=== PATIENT | male | born 1995 | race Hispanic/Latino ===

== ENCOUNTER 2018-06-29 18:46 | Inpatient (IN) | payer SELFPAY ==
[~2018-06-29] VITALS: Ht 172.7 cm; Wt 76.3 kg
[2018-06-29] MEDS ORDERED: DEXAMETHASONE SOD PHOS 10 MG/1 ML VIAL IM ONE (19:15)
[2018-06-29] MEDS ORDERED: PENICILLIN G BENZATHINE LA 1.2 MU TBX IM ONE (19:30)
[2018-06-29] MEDS ORDERED: ACETAMINOPHEN/CODEINE 300MG - 30MG TAB PO ONE (19:30)
[2018-06-29] MEDS ORDERED: SODIUM CHLORIDE 0.9% 1000ML 1,000 ML IV SCH ×2 (21:00→22:13)
--- NOTE | 2018-06-29 21:03 | Diagnostic Imaging Report ---
NECK SOFT TISSUE - 2 views HISTORY: Pain. swollen throat COMPARISON: None available. FINDINGS: Bones: No acute displaced fracture. Osseous alignment is within normal limits. Joints: The joint spaces are well-maintained. Soft tissues: Normal palatine and adenoid tonsils. IMPRESSION: 1. No acute radiographic abnormality. 2. Normal palatine and adenoid tonsils. Signed by: Dr. Иван Lopez M.D. on 06/29/2018 9:00 PM
[2018-06-29 21:39] LABS: BASOPHILS % 0.3 % (0.0-1.0); EOSINOPHILS # (AUTO) 0.3 (0.0-0.4); EOSINOPHILS % 2.1 % (0.0-6.0); HEMATOCRIT 26.6 % (38.2-49.6); HEMOGLOBIN 7.5 g/dL (14.0-18.0); LYMPHOCYTES # (AUTO) 2.3 (1.0-3.2); LYMPHOCYTES % 15.3 % (18.0-39.1); MEAN CORPUSCULAR HEMOGLOBIN 18.1 pg (28-32); MEAN CORPUSCULAR HGB CONC 28.2 g/dL (31-35); MEAN CORPUSCULAR VOLUME 64.3 fL (81-99); MONOCYTES # (AUTO) 1.1 (0.2-0.8); MONOCYTES % 7.1 % (4.4-11.3); NEUTROPHILS # (AUTO) 11.3 (2.1-6.9); NEUTROPHILS % 74.7 % (38.7-80.0); PLATELET COUNT 577 x10e3/uL (140-360); RED BLOOD COUNT 4.14 x10e6/uL (4.3-5.7); RED CELL DISTRIBUTION WIDTH 16.3 % (11.7-14.4)
[2018-06-29 21:58] LABS: ALANINE AMINOTRANSFERASE 12 IU/L (0-55); ALBUMIN 3.2 g/dL (3.5-5.0); ALBUMIN/GLOBULIN RATIO 0.7 (0.8-2.0); ALKALINE PHOSPHATASE 98 IU/L (40-150); ANION GAP 14.6 mmol/L (8-16); BLOOD UREA NITROGEN 8 mg/dL (7-26); BUN/CREATININE RATIO 9 (6-25); CALCIUM 9.2 mg/dL (8.4-10.2); CARBON DIOXIDE 24 mmol/L (22-29); CHLORIDE 103 mmol/L (98-107); CREATININE, SERUM 0.93 mg/dL (0.72-1.25); EST GLOMERULAR FILTRATION RATE > 60 ML/MIN (60-); GLUCOSE 102 mg/dL (74-118); POTASSIUM 3.6 mmol/L (3.5-5.1); SODIUM 138 mmol/L (136-145)
[2018-06-29] MEDS ORDERED: SODIUM CHLORIDE 0.9% 250ML 250 ML IV ONE (22:45)
[2018-06-29] MEDS ORDERED: SODIUM CHLORIDE 0.9% 50ML 50 ML ONE (22:45)
[2018-06-29] MEDS ORDERED: IOPAMIDOL 370 MG/ML 200 ML INFUS..BTL INJ ONE (22:45)
--- OUTSIDE RECORDS SUMMARY | 2018-06-29 23:04 | XMS REPORT ---
Author Author [facility] Address Unknown Phone Unavailable Care Team Providers Care Sales Audit Clerk Name Role Phone Bishnu DUNHAM Unavailable Unavailable Problems This patient has no known problems. Allergies, Adverse Reactions, Alerts This patient has no known allergies or adverse reactions. Medications This patient has no known medications. Results Test Description Test Time Test Comments Text Results Atomic Results Result Comments NECK SOFT TISSUE 2018-06-29 20:58:00 [place] [id number] Patient Name: JEMAL RIVAS MR #: [id number] : 1995 Age/Sex: 22/M Req #: [id number] Adm Physician: Ordered by: BETTY ANAYA MD Report #: [id number] Location: ER Room/Bed: Procedure: [id number] DX/NECK SOFT TISSUE Exam Date: 06/29/18 Exam Time: 2039 REPORT STATUS: Signed NECK SOFT TISSUE - 2 views HISTORY: Pain. swollen throat COMPARISON: None available. FINDINGS: Bones: No acute displaced fracture. Osseous alignment is within normal limits. Joints: The joint spaces are well-maintained. Soft tissues: Normal palatine and adenoid tonsils. IMPRESSION: 1. No acute radiographic abnormality. 2. Normal palatine and adenoid tonsils. Signed by: Dr. Umang Lopez M.D. on 06/29/2018 9:00 PM Dictated By: UMANG LOPEZ MD 99 Transcribed By: ADILENE on 06/29/182099 COPY TO: BETTY ANAYA MD
--- NOTE | 2018-06-29 23:21 | Diagnostic Imaging Report ---
EXAM: CT Abdomen and Pelvis WITH contrast INDICATION: Pain. Anemia. COMPARISON: None. TECHNIQUE: Abdomen and pelvis were scanned utilizing a multidetector helical scanner from the lung base to the pubic symphysis after administration of IV contrast. Coronal and sagittal reformations were obtained. Routine protocol was performed. Scan was performed when during portal venous phase. IV CONTRAST: 100 cc Isovue-370 ORAL CONTRAST: Water RADIATION DOSE: Total DLP: 676.88 mGy*cm Estimated effective dose: (DLP x 0.015 x size factor) mSv COMPLICATIONS: None FINDINGS: LINES and TUBES: None. LOWER THORAX: Unremarkable HEPATOBILIARY: No focal hepatic lesions. No biliary ductal dilation. GALLBLADDER: No radio-opaque stones or sludge. No wall thickening. SPLEEN: No splenomegaly. PANCREAS: No focal masses or ductal dilatation. ADRENALS: No adrenal nodules KIDNEYS/URETERS: Kidneys enhance symmetrically. No hydronephrosis. No cystic or solid mass lesions. No stones. GI TRACT: Mild diffuse nodular wall thickening of the colon, particularly of the transverse colon, associated with mild diffuse mesenteric lymphadenopathy. There is also engorgement of the mesenteric vasculature diffusely. Appendix is normal. PELVIC ORGANS/BLADDER: Unremarkable. LYMPH NODES: No lymphadenopathy. VESSELS: Unremarkable. PERITONEUM / RETROPERITONEUM: No free air or fluid. BONES: Unremarkable. Lumbarization of S1 SOFT TISSUES: Unremarkable. IMPRESSION: 1. Findings consistent with diffuse colitis which may be infectious, inflammatory or neoplastic etiology. Mild diffuse mesenteric lymphadenopathy is most likely reactive. Signed by: Dr. Hamzah Garcia M.D. on 06/29/2018 11:18 PM
--- NOTE | 2018-06-29 23:22 | Diagnostic Imaging Report ---
History: Throat pain and swelling. Comparison studies: X-ray of the soft tissue neck from 06/29/2018. Technique: Axial, coronal and sagittal images from the skull base to the thoracic inlet. Coronal and sagittal images reconstructed from the axial data. Dose modulation, iterative reconstruction, and/or weight based adjustment of the mA/kV was utilized to reduce the radiation dose to as low as reasonably achievable. Intravenous contrast: 100 cc of Isovue 370. Findings: Soft tissues: Nonspecific mild nasopharyngeal soft tissue prominence may represent adenoid hyperplasia. The airway is patent. Masses: None. Lymph nodes: No radiographically significant adenopathy. Vessels: Arteries and veins are patent. Glands (thyroid, parotid and submandibular): Normal in size and symmetric. No masses. Orbits: No abnormalities. Paranasal sinuses: Moderate mucosal thickening in left maxillary sinus. Temporal bones: No abnormalities. Skull base and facial bones: Intact. Cervical spine: No significant abnormality. IMPRESSION: 1. Nonspecific mild nasopharyngeal soft tissue prominence possibly represent adenoid hyperplasia. 2. Moderate mucosal inflammatory changes in left maxillary sinus. Signed by: Dr. aVnessa Aly M.D. on 06/29/2018 11:19 PM
--- NOTE | 2018-06-29 23:34 | NUR ---
Walking rounds completed with Madi maintenance supervisor 2nd shift nurse.
[2018-06-30] VITALS (7 sets, daily range): BP systolic 110–118; BP diastolic 71–76
[2018-06-30] MEDS ORDERED: CIPROFLOXACIN 400 MG/D5W 200ML 200 ML IV SCH (00:15)
[2018-06-30 02:04] LABS: HYPOCHROMASIA SLIGHT; PLATELET ESTIMATE ADEQUATE; PLATELET MORPHOLOGY COMMENT NORMAL; RBC MORPHOLOGY COMMENT NORMAL
[2018-06-30] MEDS: METRONIDAZOLE 500MG/NS 100ML 100 ML IV SCH ×3 (02:11→16:00)
[2018-06-30] MEDS ORDERED: SODIUM CHLORIDE 0.9% 250ML 250 ML ONE ×2 (03:26→04:09)
[2018-06-30] MEDS: CIPROFLOXACIN 400 MG/D5W 200ML 200 ML IV SCH ×2 (03:30→15:00)
--- NOTE | 2018-06-30 03:50 | NUR ---
Patient received via stretcher from ER accompanied by family members. Admission history obtained. Initial physical assessment conducted. Patient is AAO x 3. No complaints of pain. No signs of respiratory distress. Patient oriented to room, call light and plan of care. Fall interventions implemented. Patient instructed to call for assistance when needed. Call light within reach.
--- NOTE | 2018-06-30 04:25 | NUR ---
Ist unit of PRBC initiated. No adverse reaction noted.
[2018-06-30] MEDS ORDERED: INFLUENZA VIRUS VAC SPLIT INJ 0.5 ML SYR IM SCH ×2 (05:38→05:45)
--- NOTE | 2018-06-30 06:11 | NUR ---
1st unit of blood completed. No adverse reaction noted. Patient tolerated well.
--- NOTE | 2018-06-30 06:30 | NUR ---
2nd unit of blood transfusion initiated. Will continue to monitor.
--- NOTE | 2018-06-30 07:19 | NUR ---
Pt asleep easily aroused, resp even and unlabored at this time, no distress noted no c/o pain when asked, pt able to make needs known, call light in reach.
--- NOTE | 2018-06-30 07:33 | NUR ---
Dr. Dickson Mccall made aware of "Consult". Reason: Lower GI bleed".
[2018-06-30 11:30] LABS: BASOPHILS % 0.1 % (0.0-1.0); HEMOGLOBIN 8.5 g/dL (14.0-18.0); LYMPHOCYTES # (AUTO) 2.2 (1.0-3.2); LYMPHOCYTES % 12.7 % (18.0-39.1); MEAN CORPUSCULAR HGB CONC 29.3 g/dL (31-35); MEAN CORPUSCULAR VOLUME 68.4 fL (81-99); MONOCYTES # (AUTO) 1.3 (0.2-0.8); MONOCYTES % 7.9 % (4.4-11.3); NEUTROPHILS # (AUTO) 13.3 (2.1-6.9); NEUTROPHILS % 78.6 % (38.7-80.0); PLATELET COUNT 469 x10e3/uL (140-360); RED BLOOD COUNT 4.24 x10e6/uL (4.3-5.7); RED CELL DISTRIBUTION WIDTH 20.4 % (11.7-14.4)
[2018-06-30] MEDS: DONNATAL/LIDOCAINE/MAALOX 30 ML SUSP PO PRN ×3 (12:40→22:23)
--- NOTE | 2018-06-30 14:28 | NUR ---
Nutrition Intervention Note RD Recommendation(s) for Physician: change diet to Regular Plan of Care: RD following, monitoring for tolerance and adequacy Nutrition reason for involvement: Nutrition Risk Trigger - MST RD Assessment Initial encounter with patient. Pt with difficulty swallowing due to a swollen tongue and sore throat. Offered a texture modification, but pt refused. Offered Ensure Enlive for Pt to try and pt was agreeable. Pt denies nausea, vomiting or diarrhea. Pt states that he has lost about 20 lbs during the past year. Principal Problems/Diagnoses:lower GIB, anemia PMH:None IVF: none GI: No N,V,D Skin:Intact Labs: (06/30/2018) lab results reviewed Meds: (06/30/2018) MAR reviewed Malnutrition Evaluation (07/04/2018) The patient meets criteria for MILD protein-calorie malnutrition. Energy intake: <75% of estimated energy requirements for >3 months Weight loss: >10% in 1 year (Chronic) Fat loss: Mild, Moderate, Severe, unable to evaluate Muscle loss:Mild, Moderate, Severe, unable to evaluate Diet Education Needs Assessment: Diet education not indicated. Ht:68 Wt:167.44lbs BMI:25.5kg/m2 IBW:154lbs Estimated Nutritional Needs: 1897 - 2277 kcals at 25-30 kcals/kg/bw 76g at 1g/kg/bw Nutrition Prescription (Diet Order):Cardiac diet Food Allergies: No known food allergies Diet Adequacy: Not meeting calorie needs, Not meeting protein needs Tolerance: Tolerating PO Nutrition Care Level: Moderate Nutrition Diagnosis: Swallowing difficulty related to swollen tongue as evidenced by difficulty chewing or swallowing regular consistency foods Goal:Patient will meet 75-100% of estimated needs by follow up Progress: Progressing Interventions: General healthful diet, Commercial beverage Monitoring/Evaluation: Total energy intake, Total protein intake, Liquid supplement, Weight change Carl Sheikh RD, LD, CNSC
--- NOTE | 2018-06-30 16:46 | History and Physical ---
REASON FOR ADMISSION: The patient is a 22-year-old gentleman, who comes in with abdominal pain, rectal bleeding, and also with ulcerations in the mouth and sore throat. HISTORY OF PRESENT ILLNESS: Mr. Luis Enrique Blevins with a history of one year of abdominal pain and rectal bleeding, was in his usual state of health until about two days prior to admission, the patient started to have sore throat and ulcerations in the mouth. The patient's pain was described as 10/10. The patient came in, was found to have symptomatic anemia, and the patient was admitted for acute GI bleeding. The patient has also significant history of weight loss about 50 pounds in the last one year. REVIEW OF SYSTEMS: Negative for chest pain. No shortness of breath. No nausea, vomiting, or diarrhea. Positive for rectal bleeding. The patient has also no diplopia. No blurry vision. Positive for tiredness and fatigue. SOCIAL HISTORY: No EtOH. No IV drug abuse. Recently, he had a child, 1-year-old son. The patient has been under a lot of stress after that. MEDICATIONS: None. ALLERGIES: NO DRUG ALLERGIES NOTED. SOCIAL HISTORY: Never smoker. No EtOH. No IV drug abuse. FAMILY HISTORY: Noncontributory. PHYSICAL EXAMINATION: VITAL SIGNS: Temperature is 97.1, pulse of 72, respirations 16, blood pressure is 118/76, and pulse oximeter of 99%. HEENT: Normocephalic, atraumatic. The patient does have mucosal ulceration in the cheek and the buccal mucosa and also in the tongue, in the posterior tonsillar fossa and also in the oropharynx. CVS: S1, S2, normal. Regular rate and rhythm. ABDOMEN: Nontender, nondistended. EXTREMITIES: No clubbing, no cyanosis, no edema. LABORATORY DATA: The patient's laboratory values show white count of 15,000 with hemoglobin of 7.5 and hematocrit was 26.6. Chemistry, sodium of 138, potassium 3.6, BUN of 8, creatinine 0.93. Serology, group A strep was negative. Microbiology, throat culture is pending. ASSESSMENT: 1. Anemia, symptomatic, status post blood transfusion. 2. Abdominal pain with [id number] gastrointestinal bleed. The patient will need endoscopy and colonoscopy. 3. Significant symptomatic weight loss. We will continue to monitor the patient. Also, endoscopies are warranted at this time. Further recommendations and clinical course, GI consult with Dr. Bernabe that has been done. We will await his consult for further recommendation and clinical course. In the meanwhile, the patient is on antibiotic, has been put on Flagyl and ciprofloxacin, which we will continue. MD ALONDRA Tomlin/MODL /[id number]
--- NOTE | 2018-06-30 19:21 | NUR ---
REPORT GIVEN TO ONCOMING NURSE, FOR CONTINUED CARE
--- NOTE | 2018-06-30 19:28 | NUR ---
Patient received sitting up in bed. Family members at bedside. AAO x 4. Patient had no complaints of pain. Respirations even and unlabored. Fall prevention implemented. Call light within reach.
[2018-07-01] VITALS (7 sets, daily range): BP systolic 98–113; BP diastolic 61–70
--- NOTE | 2018-07-01 01:39 | NUR ---
Dr. Dickson Mccall here to see patient. New orders received.
--- NOTE | 2018-07-01 02:15 | NUR ---
Patient informed of diagnostic procedure---EGD/Colonoscopy and Go-Lytely bowel prep that commences at 0800. Patient also informed of change of diet from regular to clear liquid diet. Patient verbalized understanding. Patient voluntarily signed "Disclosure and Consent " form.
[2018-07-01] MEDS: CIPROFLOXACIN 400 MG/D5W 200ML 200 ML IV SCH ×2 (03:00→14:59)
[2018-07-01 06:53] LABS: INR 1.13; PROTHROMBIN TIME 15.1 seconds (11.9-14.5)
[2018-07-01 07:03] LABS: % IRON SATURATION 4 % (15-50); ALANINE AMINOTRANSFERASE 11 IU/L (0-55); ALBUMIN 2.6 g/dL (3.5-5.0); ALBUMIN/GLOBULIN RATIO 0.6 (0.8-2.0); ALKALINE PHOSPHATASE 83 IU/L (40-150); ANION GAP 11.1 mmol/L (8-16); BLOOD UREA NITROGEN 10 mg/dL (7-26); BUN/CREATININE RATIO 11 (6-25); CALCIUM 8.3 mg/dL (8.4-10.2); CARBON DIOXIDE 27 mmol/L (22-29); CHLORIDE 106 mmol/L (98-107); CREATININE, SERUM 0.87 mg/dL (0.72-1.25); EST GLOMERULAR FILTRATION RATE > 60 ML/MIN (60-); GLUCOSE 108 mg/dL (74-118); IRON 11 ug/dL (65-175); POTASSIUM 4.1 mmol/L (3.5-5.1); SODIUM 140 mmol/L (136-145); TOTAL IRON BINDING CAPACITY 276 ug/dL (261-478); TRANSFERRIN 197 mg/dL (174-364)
[2018-07-01 07:25] LABS: FERRITIN 11.51 ng/mL (21.81-274.66)
[2018-07-01 07:30] LABS: BASOPHILS % 0.2 % (0.0-1.0); HEMATOCRIT 28.3 % (38.2-49.6); HEMOGLOBIN 8.3 g/dL (14.0-18.0); LYMPHOCYTES # (AUTO) 2.6 (1.0-3.2); LYMPHOCYTES % 20.6 % (18.0-39.1); MEAN CORPUSCULAR HEMOGLOBIN 20.2 pg (28-32); MEAN CORPUSCULAR HGB CONC 29.3 g/dL (31-35); MEAN CORPUSCULAR VOLUME 68.9 fL (81-99); MONOCYTES # (AUTO) 1.3 (0.2-0.8); MONOCYTES % 9.8 % (4.4-11.3); NEUTROPHILS # (AUTO) 8.8 (2.1-6.9); NEUTROPHILS % 68.9 % (38.7-80.0); PLATELET COUNT 515 x10e3/uL (140-360); RED BLOOD COUNT 4.11 x10e6/uL (4.3-5.7); RED CELL DISTRIBUTION WIDTH 19.9 % (11.7-14.4)
[2018-07-01] MEDS ORDERED: PEG (High)/E-LYTE SOLN 4,000 ML BTL PO ONE (08:00)
[2018-07-01] MEDS: METRONIDAZOLE 500MG/NS 100ML 100 ML IV SCH ×3 (08:13→16:18)
[2018-07-01] MEDS: IRON SUCROSE 100 MG in SODIUM CHLORIDE 0.9% 100 ML 100 ML IV SCH ×2 (09:19→20:22)
--- NOTE | 2018-07-01 10:34 | Progress Note ---
DATE: 07/01/2018 SUBJECTIVE: The patient is here for acute GI bleed. The patient also has history of abdominal pain and mouth ulcers recently. The patient has probable IBD, workup has been initiated and the patient is due for endoscopy and colonoscopy today. OBJECTIVE: GENERAL: Alert and oriented x3. No complaints. VITAL SIGNS: Temperature is 96.4, afebrile for the last 24 hours, pulse is 61, respirations 16, blood pressure is 101/61, and pulse oximetry 100%. HEENT: Normocephalic and atraumatic. Positive for mouth ulcers, superficial. New pallor present. CVS: S1, S2 normal. Regular rate and rhythm. ABDOMEN: Nontender and nondistended. EXTREMITIES: No clubbing, no cyanosis, no edema. LABORATORY DATA: From today, white count was 16.93 yesterday, today's is pending. Hemoglobin was 8.5, hematocrit 29.0 status post transfusion. Chemistry, sodium of 140, potassium of 4.1, calcium was 8.3, iron was low at 11 and TIBC was 276. Coags were normal. ASSESSMENT AND PLAN: 1. Acute gastrointestinal bleed status post transfusion. 2. Probable inflammatory bowel disease, Crohn's in nature. Will need endoscopy and colonoscopy and will be done today. 3. Significant weight loss again from inflammatory bowel disease. 4. Iron deficiency anemia. We will restart iron after medication. Currently, the patient is on Flagyl and ciprofloxacin for his leukocytosis. Further recommendation and clinical course, depending on endoscopy results. MD ALONDRA Tomlin/ADRIENNEL /[id number]
[2018-07-01] MEDS ORDERED: MIDAZOLAM HCL 2 MG/2 ML VIAL ONE (15:06)
[2018-07-01] MEDS ORDERED: FENTANYL CITRATE/PF 100MCG/2 ML INJ ONE (15:06)
--- NOTE | 2018-07-01 15:25 | NUR ---
Visit made by the Spiritual Care Department Pastoral Visitor, Kelsi Simmons. PV provided pastoral presence, hospitality, and supportive listening. Pastoral Visitor informed pt/family of the scope of Therapeutic Support Staff Services and availability. MOHSEN CASTAÑEDA Offline Cutter Spiritual Care Department O: [phone] Pager: [phone] ([phone] number calling from)
--- NOTE | 2018-07-01 17:30 | NUR ---
patient off unit for EGD and colonoscopy.
[2018-07-01 19:34] LABS: WBC,FECAL (FECAL LACTOFERRIN) POSITIVE (NEGATIVE)
--- NOTE | 2018-07-01 19:40 | NUR ---
Patient back from EGD/Colonoscopy procedure. Family members at bedside. Patient had no complaints of pain or nausea. No signs of respiratory distress. Vital signs WNL. Call light within reach.
[2018-07-01] MEDS ORDERED: MESALAMINE 0.375 GM CAPCR PO ONE (20:00)
[2018-07-02] VITALS (8 sets, daily range): BP systolic 96–107; BP diastolic 54–89
[2018-07-02] MEDS: METRONIDAZOLE 500MG/NS 100ML 100 ML IV SCH ×3 (00:30→15:56)
--- NOTE | 2018-07-02 01:47 | Operative Report ---
DATE OF PROCEDURE: 07/01/2018 SURGEON: Srinivasa Mccall MD PROCEDURE: EGD with biopsies and colonoscopy with biopsies. INDICATIONS FOR EGD: Anemia. INDICATIONS FOR COLONOSCOPY: Chronic bloody diarrhea. MEDICATION: The patient was done under MAC, please see anesthesiologist's note. PROCEDURE IN DETAIL: With the patient in left lateral decubitus position, a flexible fiberoptic Olympus gastroscope was introduced into the esophagus under direct visualization without any difficulty. There were some patchy intense erythema noted in the distal esophagus. The mucosa overlying the antrum and the body revealed some patchy erythema and low-grade to moderate edema, and biopsies were obtained and sent to stain for H pylori. Pylorus appeared to be of normal contour and shape, was intubated with ease and the scope was advanced all the way to the second portion of the duodenum. Biopsies were obtained from the proximal second portion to rule out sprue. The scope was then withdrawn slowly and a minute ulcer was noted in the duodenal bulb without active bleeding or stigmata of recent hemorrhage. The scope was then withdrawn back into the stomach and retroflexed. Mucosa overlying the fundus and the cardia appeared to be within normal limits. The scope was then straightened out and was subsequently withdrawn. The patient tolerated the procedure well. IMPRESSION: 1. Distal esophagitis. 2. Gastritis, biopsied. Biopsies sent to stain for Helicobacter pylori. 3. Duodenal bulb ulcer, minute, without active bleeding or stigmata of recent hemorrhage. 4. Rule out sprue. PLAN: Follow up histology. Initiate Protonix 40 mg one p.o. q.a.m. before meals. The patient was then turned around. After adequate lubrication of the anal canal, a flexible fiberoptic Olympus colonoscope was inserted into the rectum with ease and advanced all the way to the cecum. Mucosa overlying the cecum appeared to be within normal limits. The ileocecal valve was intubated and the scope was advanced into the terminal ileum. Biopsies were obtained. The scope was then withdrawn back into the colon. It was then withdrawn slowly and the mucosa overlying the ascending, transverse, descending, sigmoid, and rectum revealed some patchy ulcerations and intense erythema and friability throughout the colon. It was more prominent in the left colon and the rectum, and random biopsies were obtained. The scope was then retroflexed into the distal rectum and small internal hemorrhoids were noted, none of which was actively bleeding. The scope was then straightened out, it was subsequently withdrawn after securing an adequate stool specimen that was sent for the appropriate stool studies. The patient tolerated the procedure well. IMPRESSION: 1. Ulcerative colitis, random biopsies obtained. 2. Ulcerative proctitis, biopsies obtained. 3. Internal hemorrhoids, none actively bleeding. PLAN: Follow up histology. Follow up stool studies. Initiate Apriso 0.375 four tablets p.o. daily. If stool cultures are negative for enteric pathogens, the patient should be started on a biologic. Srinivasa Mccall MD [facility]/MODL /[id number] cc: Davy Quevedo MD
[2018-07-02] MEDS: CIPROFLOXACIN 400 MG/D5W 200ML 200 ML IV SCH ×2 (03:15→15:00)
[2018-07-02 05:18] LABS: BASOPHILS % 0.4 % (0.0-1.0); EOSINOPHILS # (AUTO) 0.3 (0.0-0.4); EOSINOPHILS % 2.4 % (0.0-6.0); HEMATOCRIT 28.6 % (38.2-49.6); HEMOGLOBIN 8.3 g/dL (14.0-18.0); LYMPHOCYTES # (AUTO) 3.3 (1.0-3.2); MEAN CORPUSCULAR VOLUME 68.8 fL (81-99); MONOCYTES # (AUTO) 1.1 (0.2-0.8); MONOCYTES % 9.3 % (4.4-11.3); NEUTROPHILS # (AUTO) 6.7 (2.1-6.9); NEUTROPHILS % 58.3 % (38.7-80.0); PLATELET COUNT 474 x10e3/uL (140-360); RED BLOOD COUNT 4.16 x10e6/uL (4.3-5.7); RED CELL DISTRIBUTION WIDTH 20.8 % (11.7-14.4)
--- NOTE | 2018-07-02 07:00 | NUR ---
SHIFT REPORT RECEIVED FROM NIGHT RN WHILE ROUNDING AT BEDSIDE. PT DENIES NEEDS AT THIS TIME.
[2018-07-02] MEDS ORDERED: PEG (High)/E-LYTE SOLN 4,000 ML BTL PO ONE (08:00)
[2018-07-02] MEDS: MESALAMINE 0.375 GM CAPCR PO SCH (08:59)
[2018-07-02] MEDS: IRON SUCROSE 100 MG in SODIUM CHLORIDE 0.9% 100 ML 100 ML IV SCH ×2 (09:55→20:27)
--- NOTE | 2018-07-02 10:38 | NUR ---
GAVE PACKET OF INFORMATION WITH COMMUNITY RESOURCES FOR ASSISTANCE WITH LOW TO NO INCOME TO PATIENT. RESOURCES THAT PATIENT MAY BE ABLE TO FOLLOW UP UPON DISCHARGE. PT EDUCATED ON EACH RESOURCE AND UNDERSTANDING HOW TO FOLLOW UP TO SEE IF QUALIFIED FOR EACH RESOURCE.
[2018-07-02 10:42] LABS: C DIFFICILE TOXIN A&B AMP PROB NEGATIVE (NEGATIVE)
--- NOTE | 2018-07-02 11:05 | Progress Note ---
DATE: SUBJECTIVE: The patient is here for rectal bleeding, abdominal pain. The patient had an endoscopy and colonoscopy yesterday, he was found to have ulcerative colitis, was started on Apriso. Currently asymptomatic. Diarrhea is better and no rectal bleeding. OBJECTIVE: HEENT: Normocephalic, atraumatic. The patient does have still an ulceration in the mouth, which is better. CVS: S1 and S2 normal. Regular rate and rhythm. ABDOMEN: Nontender, nondistended. EXTREMITIES: No clubbing, no cyanosis, no edema. LABORATORY DATA: Today's white count is 11,000, hemoglobin of 8.3, hematocrit 28.6. Chemistries all within normal limit except for iron, which has been low. ASSESSMENT: 1. Ulcerative colitis. 2. Acute gastrointestinal bleed status post transfusion. 3. Proctitis. 4. Significant weight loss from inflammatory bowel disease. 5. Iron deficiency anemia. The patient is currently getting iron. Continue with Apriso. Continue with metronidazole and Flagyl. Further recommendations and clinical course, the patient can possibly go home depending on his progress today. MD ESAU TomlinJ/MODL /[id number]
--- NOTE | 2018-07-02 13:00 | NUR ---
PT HAD A BM WITH BLOOD STILL PRESENT TODAY.
[2018-07-02] MEDS ORDERED: PROPOFOL IV EMULSION 10 MG/ML 50 ML VIAL ONE (13:09)
[2018-07-02] MEDS ORDERED: ACETAMINOPHEN 325 MG TAB PO PRN (20:15)
[2018-07-03] VITALS (8 sets, daily range): BP systolic 93–110; BP diastolic 52–68
[2018-07-03] MEDS: METRONIDAZOLE 500MG/NS 100ML 100 ML IV SCH ×3 (00:03→15:43)
[2018-07-03] MEDS: CIPROFLOXACIN 400 MG/D5W 200ML 200 ML IV SCH ×2 (04:03→15:00)
[2018-07-03 05:59] LABS: BASOPHILS # (AUTO) 0.1 (0.0-0.1); BASOPHILS % 0.5 % (0.0-1.0); EOSINOPHILS # (AUTO) 0.7 (0.0-0.4); EOSINOPHILS % 5.5 % (0.0-6.0); HEMATOCRIT 29.1 % (38.2-49.6); HEMOGLOBIN 8.4 g/dL (14.0-18.0); LYMPHOCYTES # (AUTO) 3.6 (1.0-3.2); LYMPHOCYTES % 27.2 % (18.0-39.1); MEAN CORPUSCULAR HEMOGLOBIN 20.3 pg (28-32); MEAN CORPUSCULAR HGB CONC 28.9 g/dL (31-35); MEAN CORPUSCULAR VOLUME 70.5 fL (81-99); MONOCYTES % 7.7 % (4.4-11.3); NEUTROPHILS # (AUTO) 7.5 (2.1-6.9); NEUTROPHILS % 56.7 % (38.7-80.0); PLATELET COUNT 506 x10e3/uL (140-360); RED BLOOD COUNT 4.13 x10e6/uL (4.3-5.7); RED CELL DISTRIBUTION WIDTH 20.9 % (11.7-14.4)
--- NOTE | 2018-07-03 07:00 | NUR ---
SHIFT REPORT RECEIVED FROM NIGHT RN WHILE ROUNDING AT BEDSIDE. PT DENIES NEEDS AT THIS TIME.
[2018-07-03] MEDS: MESALAMINE 0.375 GM CAPCR PO SCH (08:09)
[2018-07-03] MEDS: IRON SUCROSE 100 MG in SODIUM CHLORIDE 0.9% 100 ML 100 ML IV SCH (09:30)
--- NOTE | 2018-07-03 10:03 | NUR ---
PT HAD A LOOSE SMALL BM THIS AM WITH SMALL AMOUNT OF IMTIAZ BLOOD PRESENT. PT STATES THAT THERE IS NO SIGNIFICANT DECREASE IN BLOOD SHOWING.
--- NOTE | 2018-07-03 10:45 | Progress Note ---
DATE: SUBJECTIVE: The patient is here for abdominal pain and also gastrointestinal bleed and endoscopy suggestive of ulcerative colitis. Currently, tolerating diet, asymptomatic. Complains of some abdominal pain and also no bleeding noted today. The patient is currently on ciprofloxacin, Flagyl, mesalamine, and also iron sucrose IV infusions. OBJECTIVE: VITAL SIGNS: Currently afebrile. T-max is 100.0 on 07/02/2018 at 20:00. The patient's blood pressure is 93/52 and pulse oximetry is 98%. HEENT: Normocephalic and atraumatic. Pupils are reactive to light and accommodation. CVS: S1, S2 normal. Regular rate and rhythm. ABDOMEN: Nontender, nondistended. Extremities: No clubbing, no cyanosis, and no edema. LABORATORY VALUES: White count is 13,000, hemoglobin of 8.4, and hematocrit 29.1. The patient's chemistries, 140 sodium, potassium 4.1, iron is 11, TIBC 276, percent saturation of 4, and transferrin of 197. ASSESSMENT: 1. Ulcerative colitis. 2. Acute gastrointestinal bleed. 3. Proctitis from ulcerative colitis. 4. Significant weight loss. 5. Iron deficiency anemia. PLAN: To continue with Apriso and continue with metronidazole and Flagyl for leukocytosis. We will maintain his IV antibiotics. The patient is currently getting better. Possible discharge today and/or in the morning depending on his blood count and also on his leukocytosis. Further recommendation per clinical course. We will continue to advance his diet and help the patient ambulate. MD ALONDRA Tomlin/ADRIENNEL /[id number]
[2018-07-03 11:10] LABS: BAND NEUTROPHILS % (MANUAL) 1 %; EOSINOPHILS % (MANUAL) 6 % (0-7); LYMPHOCYTES % (MANUAL) 28 % (19-48); METAMYELOCYTES % (MANUAL) 2 % (0-0); MONOCYTES % (MANUAL) 9 % (3.4-9.0); NEUTROPHILS % (MANUAL) 51 % (40-74); NUCLEATED RED BLOOD CELLS 1; PLATELET MORPHOLOGY COMMENT NORMAL; RBC MORPHOLOGY COMMENT ABNORMAL
[2018-07-03 11:11] LABS: PLATELET ESTIMATE SLIGHTLY INCREASED
[2018-07-03 11:12] LABS: ANISOCYTOSIS SLIGHT; HYPOCHROMASIA SLIGHT; POIKILOCYTOSIS SLIGHT
--- NOTE | 2018-07-03 15:38 | NUR ---
PT HAS HAD 2 MORE BM'S, SMALL AND LOOSE WITH 30% BLOODY TISSUE INVOLVED. MORE THAN THE FIRST BM THIS MORNING.
[2018-07-04 00:03] VITALS: BP 116/63
[2018-07-04] MEDS: METRONIDAZOLE 500MG/NS 100ML 100 ML IV SCH ×2 (00:07→08:46)
[2018-07-04] MEDS ORDERED: FLAGYL250 MG PO (02:15)
[2018-07-04] MEDS ORDERED: CIPRO500 MG PO (02:17)
[2018-07-04] MEDS ORDERED: APRISO0.375 GM PO ×2 (02:19→02:26)
[2018-07-04] MEDS: CIPROFLOXACIN 400 MG/D5W 200ML 200 ML IV SCH (03:00)
[2018-07-04 05:14] LABS: BASOPHILS # (AUTO) 0.1 (0.0-0.1); BASOPHILS % 0.6 % (0.0-1.0); EOSINOPHILS # (AUTO) 1.1 (0.0-0.4); EOSINOPHILS % 6.9 % (0.0-6.0); HEMOGLOBIN 9.2 g/dL (14.0-18.0); LYMPHOCYTES # (AUTO) 3.8 (1.0-3.2); LYMPHOCYTES % 24.1 % (18.0-39.1); MEAN CORPUSCULAR HEMOGLOBIN 20.2 pg (28-32); MEAN CORPUSCULAR HGB CONC 28.8 g/dL (31-35); MEAN CORPUSCULAR VOLUME 70.2 fL (81-99); MONOCYTES # (AUTO) 1.1 (0.2-0.8); MONOCYTES % 6.9 % (4.4-11.3); NEUTROPHILS # (AUTO) 9.4 (2.1-6.9); NEUTROPHILS % 59.4 % (38.7-80.0); PLATELET COUNT 531 x10e3/uL (140-360); RED BLOOD COUNT 4.56 x10e6/uL (4.3-5.7); RED CELL DISTRIBUTION WIDTH 22.2 % (11.7-14.4)
[2018-07-04 05:27] VITALS: BP 106/59
[2018-07-04 07:31] LABS: EOSINOPHILS % (MANUAL) 2 % (0-7); LYMPHOCYTES % (MANUAL) 25 % (19-48); MONOCYTES % (MANUAL) 4 % (3.4-9.0); NEUTROPHILS % (MANUAL) 69 % (40-74)
[2018-07-04 07:33] LABS: ANISOCYTOSIS MODERATE; HYPOCHROMASIA MODERATE; MICROCYTOSIS MODERATE; OVALOCYTES FEW; PLATELET ESTIMATE SLIGHTLY INCREASED; PLATELET MORPHOLOGY COMMENT NORMAL; POLYCHROMASIA FEW; RBC MORPHOLOGY COMMENT ABNORMAL
[2018-07-04 08:20] VITALS: BP 104/56
[2018-07-04 08:21] VITALS: BP 104/56
[2018-07-04] MEDS: MESALAMINE 0.375 GM CAPCR PO SCH (08:46)
--- NOTE | 2018-07-04 10:15 | NUR ---
Left FA IV discontinued. No signs of infiltration noted. 2x2 gauze and tape placed. Taken via wheelchair to personal car by PCT. AAOX4 to time, person,place, situation. Respirations even and unlabored. Denies pain. All personal belongings, rx, and discharge instructions taken with patient. Accompanied by mother.
--- NOTE | 2018-07-04 10:31 | Progress Note ---
DATE: SUBJECTIVE: A 22-year-old male with GI bleed, comes in status post 2 units of PRBCs, status post endoscopy and colonoscopy, was found to have ulcerative colitis. The patient is on Apriso at this time and Flagyl and metronidazole. The patient is currently asymptomatic. Diarrhea has dissipated, no rectal bleed. OBJECTIVE: VITAL SIGNS: Temperature is 97.8, blood pressure is 106/59, pulse oximetry of 99%, and respirations of 18. CVS: S1, S2 normal. ABDOMEN: Nontender and nondistended. LUNGS: Clear to auscultation bilaterally. HEENT: Normocephalic, atraumatic. EXTREMITIES: No clubbing, no cyanosis, no edema. MICROBIOLOGY: Throat culture, usual francisco. ASSESSMENT: 1. Ulcerative colitis. 2. Acute gastrointestinal bleed. 3. Proctitis. PLAN: Plan is to continue with the metronidazole and Flagyl. The patient can be discharged home on Apriso. Antibiotics have been written for and Apriso prescription had been written for. The patient is to follow up with Dr. Mccall for further GI consult. MD ESAU TomlinJ/MODL /[id number]
== END 2018-07-04 10:15 | disposition home or self-care (01) | DRG 387 ==
LOC: ER 18:46 → ERHOLD 22:53 → MED/SURG2 06-30 03:03 → OBSVTOIN 07-01 08:44
PROVIDERS: ADMIT Family Medicine; ATTEND Family Medicine
PROC: 0DB98ZZ Excision of Duodenum, Via Natural or Artificial Opening Endoscopic (ICD-10-PCS; principal; 2018-07-02)
PROC: 0DB98ZX Excision of Duodenum, Via Natural or Artificial Opening Endoscopic, Diagnostic (ICD-10-PCS; 2018-07-02)
PROC: 0DB78ZX Excision of Stomach, Pylorus, Via Natural or Artificial Opening Endoscopic, Diagnostic (ICD-10-PCS; 2018-07-02)
PROC: 0DBB8ZX Excision of Ileum, Via Natural or Artificial Opening Endoscopic, Diagnostic (ICD-10-PCS; 2018-07-02)
PROC: 0DBP8ZX Excision of Rectum, Via Natural or Artificial Opening Endoscopic, Diagnostic (ICD-10-PCS; 2018-07-02)
PROC: 0DBG8ZX Excision of Left Large Intestine, Via Natural or Artificial Opening Endoscopic, Diagnostic (ICD-10-PCS; 2018-07-02)
DX: K51.211 Ulcerative (chronic) proctitis with rectal bleeding (principal); K58.8 Other irritable bowel syndrome; K58.9 Irritable bowel syndrome, unspecified; K26.9 Duodenal ulcer, unspecified as acute or chronic, without hemorrhage or perforation; K64.8 Other hemorrhoids; D50.9 Iron deficiency anemia, unspecified; K29.70 Gastritis, unspecified, without bleeding; R63.4 Abnormal weight loss; Z68.25 Body mass index [BMI] 25.0-25.9, adult
CPT/HCPCS: 36415; 43239; 45380; 70360; 70491; 74177; 80053; 82607; 82728; 82746; 83518; 83540; 83630; 83993; 84466; 85025; 85045; 85610; 85651; 86140; 86256; 86671; 86850; 86900; 86920; 87045; 87070; 87177; 87328; 87493; 88305; 88312; 99284; G0378; J0561; J1100; J1756; J2250; J7030; J7050; P9016; Q9967

== ENCOUNTER 2018-08-11 12:20 | Inpatient (IN) | payer BC ==
[~2018-08-11] VITALS: Ht 170.2 cm; Wt 72.6 kg
[2018-08-11] MEDS: CIPROFLOXACIN 400 MG/D5W 200ML 200 ML IV SCH ×2 (02:20→14:20)
[~2018-08-11 12:20] MED LIST: APRISO0.375 GM PO; CIPRO500 MG PO; FLAGYL250 MG PO
--- NOTE | 2018-08-11 12:32 | NUR ---
DR. NELSON AT BEDSIDE AT THIS TIME FOR PT EVAL.
[2018-08-11] MEDS ORDERED: SODIUM CHLORIDE 0.9% 1000ML 1,000 ML IV STA (12:33)
[2018-08-11 13:06] LABS: BASOPHILS # (AUTO) 0.1 (0.0-0.1); BASOPHILS % 0.4 % (0.0-1.0); EOSINOPHILS % 0.2 % (0.0-6.0); HEMATOCRIT 33.1 % (38.2-49.6); HEMOGLOBIN 10.3 g/dL (14.0-18.0); LYMPHOCYTES # (AUTO) 2.1 (1.0-3.2); LYMPHOCYTES % 12.6 % (18.0-39.1); MEAN CORPUSCULAR HEMOGLOBIN 21.5 pg (28-32); MEAN CORPUSCULAR HGB CONC 31.1 g/dL (31-35); MEAN CORPUSCULAR VOLUME 69.1 fL (81-99); MONOCYTES # (AUTO) 2.2 (0.2-0.8); MONOCYTES % 12.8 % (4.4-11.3); NEUTROPHILS # (AUTO) 12.4 (2.1-6.9); NEUTROPHILS % 73.6 % (38.7-80.0); PLATELET COUNT 528 x10e3/uL (140-360); RED BLOOD COUNT 4.79 x10e6/uL (4.3-5.7); RED CELL DISTRIBUTION WIDTH 20.7 % (11.7-14.4)
[2018-08-11 13:24] LABS: ALANINE AMINOTRANSFERASE 11 IU/L (0-55); ALBUMIN 2.9 g/dL (3.5-5.0); ALBUMIN/GLOBULIN RATIO 0.6 (0.8-2.0); ALKALINE PHOSPHATASE 104 IU/L (40-150); ANION GAP 15.3 mmol/L (8-16); BLOOD UREA NITROGEN 7 mg/dL (7-26); BUN/CREATININE RATIO 8 (6-25); CALCIUM 9.2 mg/dL (8.4-10.2); CARBON DIOXIDE 24 mmol/L (22-29); CHLORIDE 99 mmol/L (98-107); CREATINE KINASE 10 IU/L (30-200); CREATININE, SERUM 0.89 mg/dL (0.72-1.25); EST GLOMERULAR FILTRATION RATE > 60 ML/MIN (60-); GLUCOSE 126 mg/dL (74-118); LIPASE 45 U/L (8-78); MAGNESIUM 2.3 MG/DL (1.3-2.1); POTASSIUM 3.3 mmol/L (3.5-5.1); SODIUM 135 mmol/L (136-145)
[2018-08-11 13:27] LABS: COLOR,URINE YELLOW (YELLOW)
[2018-08-11 13:28] LABS: BILIRUBIN,URINE 1+ (NEGATIVE); CLARITY,URINE CLOUDY (CLEAR); KETONES,URINE TRACE (NEGATIVE); LEUKOCYTE ESTERASE ,URINE 1+ (NEGATIVE); NITRITE,URINE NEGATIVE (NEGATIVE); PROTEIN,URINE DIPSTICK 2+ (NEGATIVE); URINE UROBILINOGEN 0.2 mg/dL (0.2 - 1)
[2018-08-11 13:29] LABS: AMORPHOUS SEDIMENT,URINE MODERATE (FEW); BACTERIA,URINE MANY /HPF; EPITHELIAL CELLS,URINE MANY /LPF; WBC,URINE (MAN) >50 /HPF (0-5)
[2018-08-11] MEDS ORDERED: ONDANSETRON HCL INJ 2MG/ML 2ML 2 MG/ML VIAL IV ONE (13:30)
[2018-08-11] MEDS ORDERED: MORPHINE SULFATE INJ 4 MG/ML INJ 1ML IV ONE (13:30)
[2018-08-11 13:32] LABS: BAND NEUTROPHILS % (MANUAL) 6 %; LYMPHOCYTES % (MANUAL) 13 % (19-48); MONOCYTES % (MANUAL) 10 % (3.4-9.0); NEUTROPHILS % (MANUAL) 71 % (40-74); PLATELET ESTIMATE MODERATELY INCREASED
[2018-08-11 13:33] LABS: PLATELET MORPHOLOGY COMMENT NORMAL; RBC MORPHOLOGY COMMENT NORMAL
[2018-08-11] MEDS ORDERED: CIPROFLOXACIN 400 MG/D5W 200ML 200 ML IV ONE (14:00)
[2018-08-11] MEDS ORDERED: METRONIDAZOLE 500MG/NS 100ML 100 ML IV ONE (15:00)
--- NOTE | 2018-08-11 15:51 | Diagnostic Imaging Report ---
EXAM: CT Abdomen and Pelvis WITH contrast INDICATION: ^abd pain ^[id number] ^1400 COMPARISON: CT abdomen and pelvis 06/29/2018 TECHNIQUE: Abdomen and pelvis were scanned utilizing a multidetector helical scanner from the lung base to the pubic symphysis after administration of IV contrast. Coronal and sagittal reformations were obtained. Routine protocol was performed. Scan was performed when during portal venous phase. IV CONTRAST: 100 mL of Isovue-370 ORAL CONTRAST: None RADIATION DOSE: Total DLP: 242.9 mGy*cm Estimated effective dose: (DLP x 0.015 x size factor) mSv COMPLICATIONS: None FINDINGS: LINES and TUBES: None. LOWER THORAX: Unremarkable HEPATOBILIARY: No focal hepatic lesions. No biliary ductal dilation. GALLBLADDER: No radio-opaque stones or sludge. No wall thickening. SPLEEN: No splenomegaly. PANCREAS: No focal masses or ductal dilatation. ADRENALS: No adrenal nodules KIDNEYS/URETERS: Kidneys enhance symmetrically. No hydronephrosis. No cystic or solid mass lesions. No stones. GI TRACT: Interval resolution of the wall thickening in the transverse colon with persistent circumferential wall thickening of the descending colon. No bowel dilatation or obstruction. Appendix is not well-visualized. PELVIC ORGANS/BLADDER: Unremarkable. LYMPH NODES: Reactive mesenteric lymph nodes are unchanged. VESSELS: Unremarkable. PERITONEUM / RETROPERITONEUM: No free air or fluid. BONES: Unremarkable. SOFT TISSUES: Unremarkable. IMPRESSION: Improved but not resolved colitis with persistent inflammatory changes in the descending colon. Consider direct visualization if not obtained. Signed by: Dr. Estelita Ramirez M.D. on 08/11/2018 3:47 PM
[2018-08-11] MEDS ORDERED: MORPHINE SULFATE INJ 4 MG/ML INJ 1ML IV PRN (16:45)
[2018-08-11] MEDS ORDERED: ONDANSETRON HCL INJ 2MG/ML 2ML 2 MG/ML VIAL IV PRN (16:45)
[2018-08-11] MEDS: SODIUM CHLORIDE 0.9% 1000ML 1,000 ML IV SCH (17:45)
[2018-08-11] MEDS ORDERED: ACETAMINOPHEN 325 MG TAB PO PRN (17:45)
[2018-08-11] MEDS ORDERED: METRONIDAZOLE 500MG/NS 100ML 100 ML IV SCH (18:00)
[2018-08-11] MEDS ORDERED: HYDRALAZINE HCL 20 MG/ML VIAL IV PRN (18:00)
[2018-08-11] MEDS ORDERED: ACETAMINOPHEN 325 MG TAB PO ONE (18:00)
[2018-08-11] MEDS ORDERED: POTASSIUM CHLORIDE 20 MEQ TAB CR PO ONE (18:30)
[2018-08-11 18:34] VITALS: BP 122/59
[2018-08-11 18:47] VITALS: BP 122/59
--- NOTE | 2018-08-11 19:05 | NUR ---
Patient visited in room during nursing rounds. Patient alert and oriented x3. Family at bedside visiting. Patient ambulatory in room prn. On IVF (NS at 125ml/hr) and scheduled IV antibiotics. Instructed pt to call when assistance needed prn. Call dow within reach.
[2018-08-11 20:00] VITALS: BP 108/62
[2018-08-11] MEDS ORDERED: IOPAMIDOL 370 MG/ML 200 ML INFUS..BTL INJ ONE (21:11)
[2018-08-11] MEDS ORDERED: SODIUM CHLORIDE 0.9% 50ML 50 ML ONE (21:11)
[2018-08-12] VITALS (8 sets, daily range): BP systolic 96–138; BP diastolic 54–79
--- NOTE | 2018-08-12 01:10 | NUR ---
Patient went to bathroom and had a bowel movement. Pt described stool as "watery brown."
[2018-08-12] MEDS: SODIUM CHLORIDE 0.9% 1000ML 1,000 ML IV SCH ×3 (02:38→15:05)
[2018-08-12] MEDS: CIPROFLOXACIN 400 MG/D5W 200ML 200 ML IV SCH ×2 (02:38→15:04)
[2018-08-12 05:17] LABS: BASOPHILS # (AUTO) 0.1 (0.0-0.1); BASOPHILS % 0.4 % (0.0-1.0); EOSINOPHILS # (AUTO) 0.1 (0.0-0.4); EOSINOPHILS % 0.8 % (0.0-6.0); HEMATOCRIT 29.5 % (38.2-49.6); HEMOGLOBIN 8.9 g/dL (14.0-18.0); LYMPHOCYTES # (AUTO) 2.7 (1.0-3.2); LYMPHOCYTES % 20.5 % (18.0-39.1); MEAN CORPUSCULAR HEMOGLOBIN 21.3 pg (28-32); MEAN CORPUSCULAR HGB CONC 30.2 g/dL (31-35); MEAN CORPUSCULAR VOLUME 70.6 fL (81-99); MONOCYTES # (AUTO) 2.2 (0.2-0.8); MONOCYTES % 17.3 % (4.4-11.3); NEUTROPHILS # (AUTO) 7.8 (2.1-6.9); NEUTROPHILS % 60.6 % (38.7-80.0); PLATELET COUNT 445 x10e3/uL (140-360); RED BLOOD COUNT 4.18 x10e6/uL (4.3-5.7); RED CELL DISTRIBUTION WIDTH 20.8 % (11.7-14.4)
[2018-08-12 05:41] LABS: ALANINE AMINOTRANSFERASE 12 IU/L (0-55); ALBUMIN 2.5 g/dL (3.5-5.0); ALBUMIN/GLOBULIN RATIO 0.6 (0.8-2.0); ALKALINE PHOSPHATASE 82 IU/L (40-150); ANION GAP 10.6 mmol/L (8-16); BLOOD UREA NITROGEN 6 mg/dL (7-26); BUN/CREATININE RATIO 8 (6-25); CALCIUM 8.5 mg/dL (8.4-10.2); CARBON DIOXIDE 24 mmol/L (22-29); CHLORIDE 103 mmol/L (98-107); CREATININE, SERUM 0.79 mg/dL (0.72-1.25); EST GLOMERULAR FILTRATION RATE > 60 ML/MIN (60-); GLUCOSE 109 mg/dL (74-118); POTASSIUM 3.6 mmol/L (3.5-5.1); SODIUM 134 mmol/L (136-145)
[2018-08-12] MEDS: METRONIDAZOLE 500MG/NS 100ML 100 ML IV SCH ×5 (06:06→23:52)
[2018-08-12 07:02] LABS: FERRITIN 46.32 ng/mL (21.81-274.66)
[2018-08-12 07:18] LABS: FOLATE 7.5 ng/mL (7.0-15.4)
[2018-08-12] MEDS: FAMOTIDINE 20 MG TAB PO SCH ×2 (08:12→17:17)
[2018-08-12] MEDS ORDERED: MESALAMINE 0.375 GM CAPCR PO SCH (09:00)
[2018-08-12] MEDS: IRON SUCROSE 100 MG in SODIUM CHLORIDE 0.9% 100 ML 100 ML IV SCH (11:07)
[2018-08-12] MEDS: METHYLPREDNISOLONE SOD SUCC 40 MG/ML VIAL 1ML IV SCH ×2 (14:46→22:00)
[2018-08-12] MEDS ORDERED: ONDANSETRON HCL 4 MG ORAL DISINTEGRATING TAB PO PRN (16:30)
[2018-08-12] MEDS ORDERED: FERROUS SULFATE 325 MG TAB PO SCH (17:00)
[2018-08-12] MEDS: ASCORBIC ACID 500 MG TAB PO SCH (17:18)
--- NOTE | 2018-08-12 18:40 | NUR ---
pt lying in bed with TV on, eyes open, Resp even and unlabored. denisha light within reach.
[2018-08-12] MEDS ORDERED: MESALAMINE 0.375 GM CAPCR PO STA (23:48)
[2018-08-13] VITALS (7 sets, daily range): BP systolic 95–123; BP diastolic 56–62
[2018-08-13] MEDS: CIPROFLOXACIN 400 MG/D5W 200ML 200 ML IV SCH ×2 (02:20→14:43)
[2018-08-13] MEDS: SODIUM CHLORIDE 0.9% 1000ML 1,000 ML IV SCH ×3 (02:20→17:27)
[2018-08-13 02:32] LABS: BILIRUBIN,URINE NEGATIVE (NEGATIVE); CLARITY,URINE CLEAR (CLEAR); COLOR,URINE YELLOW (YELLOW); KETONES,URINE NEGATIVE (NEGATIVE); LEUKOCYTE ESTERASE ,URINE TRACE (NEGATIVE); NITRITE,URINE NEGATIVE (NEGATIVE); PROTEIN,URINE DIPSTICK NEGATIVE (NEGATIVE); URINE UROBILINOGEN 0.2 mg/dL (0.2 - 1)
[2018-08-13 02:35] LABS: EPITHELIAL CELLS,URINE FEW /LPF; RBC,URINE 0-5 /HPF (0-5)
[2018-08-13 05:28] LABS: BASOPHILS % 0.2 % (0.0-1.0); HEMATOCRIT 31.3 % (38.2-49.6); HEMOGLOBIN 9.1 g/dL (14.0-18.0); LYMPHOCYTES # (AUTO) 1.7 (1.0-3.2); LYMPHOCYTES % 18.3 % (18.0-39.1); MEAN CORPUSCULAR HEMOGLOBIN 20.9 pg (28-32); MEAN CORPUSCULAR HGB CONC 29.1 g/dL (31-35); MEAN CORPUSCULAR VOLUME 71.8 fL (81-99); MONOCYTES # (AUTO) 0.3 (0.2-0.8); MONOCYTES % 3.4 % (4.4-11.3); NEUTROPHILS # (AUTO) 7.1 (2.1-6.9); NEUTROPHILS % 77.4 % (38.7-80.0); PLATELET COUNT 455 x10e3/uL (140-360); RED BLOOD COUNT 4.36 x10e6/uL (4.3-5.7); RED CELL DISTRIBUTION WIDTH 20.7 % (11.7-14.4)
[2018-08-13 05:45] LABS: ANION GAP 12.8 mmol/L (8-16); BLOOD UREA NITROGEN 5 mg/dL (7-26); BUN/CREATININE RATIO 7 (6-25); CALCIUM 8.9 mg/dL (8.4-10.2); CARBON DIOXIDE 25 mmol/L (22-29); CHLORIDE 105 mmol/L (98-107); CREATININE, SERUM 0.73 mg/dL (0.72-1.25); EST GLOMERULAR FILTRATION RATE > 60 ML/MIN (60-); GLUCOSE 135 mg/dL (74-118); MAGNESIUM 2.6 MG/DL (1.3-2.1); POTASSIUM 3.8 mmol/L (3.5-5.1); SODIUM 139 mmol/L (136-145)
[2018-08-13] MEDS: METRONIDAZOLE 500MG/NS 100ML 100 ML IV SCH ×3 (06:07→17:28)
[2018-08-13] MEDS: METHYLPREDNISOLONE SOD SUCC 40 MG/ML VIAL 1ML IV SCH ×3 (06:07→21:56)
--- NOTE | 2018-08-13 07:20 | NUR ---
The pt is in be asleep at bedside rounds. Side rails are elevated times 2. The pt. denies pain or discomfort at this time.
[2018-08-13] MEDS: FAMOTIDINE 20 MG TAB PO SCH ×2 (07:30→17:27)
[2018-08-13] MEDS: MESALAMINE 0.375 GM CAPCR PO SCH (09:30)
[2018-08-13] MEDS: CYANOCOBALAMIN INJ 1,000 MCG/ML VIAL IM SCH (09:30)
[2018-08-13] MEDS: ASCORBIC ACID 500 MG TAB PO SCH ×2 (09:30→17:27)
[2018-08-13] MEDS: IRON SUCROSE 100 MG in SODIUM CHLORIDE 0.9% 100 ML 100 ML IV SCH (12:15)
[2018-08-14] VITALS (7 sets, daily range): BP systolic 106–120; BP diastolic 55–66
[2018-08-14] MEDS: METRONIDAZOLE 500MG/NS 100ML 100 ML IV SCH ×5 (00:03→23:44)
[2018-08-14] MEDS: SODIUM CHLORIDE 0.9% 1000ML 1,000 ML IV SCH ×3 (01:50→16:41)
[2018-08-14] MEDS: CIPROFLOXACIN 400 MG/D5W 200ML 200 ML IV SCH ×2 (01:50→16:41)
[2018-08-14] MEDS: METHYLPREDNISOLONE SOD SUCC 40 MG/ML VIAL 1ML IV SCH ×3 (05:23→22:35)
[2018-08-14 05:30] LABS: BASOPHILS # (AUTO) 0.1 (0.0-0.1); BASOPHILS % 0.2 % (0.0-1.0); HEMATOCRIT 30.4 % (38.2-49.6); HEMOGLOBIN 9.2 g/dL (14.0-18.0); LYMPHOCYTES # (AUTO) 1.8 (1.0-3.2); LYMPHOCYTES % 7.1 % (18.0-39.1); MEAN CORPUSCULAR HEMOGLOBIN 21.7 pg (28-32); MEAN CORPUSCULAR HGB CONC 30.3 g/dL (31-35); MEAN CORPUSCULAR VOLUME 71.7 fL (81-99); NEUTROPHILS # (AUTO) 22.5 (2.1-6.9); NEUTROPHILS % 87.3 % (38.7-80.0); PLATELET COUNT 501 x10e3/uL (140-360); RED BLOOD COUNT 4.24 x10e6/uL (4.3-5.7); RED CELL DISTRIBUTION WIDTH 21.1 % (11.7-14.4)
[2018-08-14 05:49] LABS: ANION GAP 9.6 mmol/L (8-16); BLOOD UREA NITROGEN 5 mg/dL (7-26); BUN/CREATININE RATIO 7 (6-25); CALCIUM 8.8 mg/dL (8.4-10.2); CARBON DIOXIDE 25 mmol/L (22-29); CHLORIDE 107 mmol/L (98-107); CREATININE, SERUM 0.73 mg/dL (0.72-1.25); EST GLOMERULAR FILTRATION RATE > 60 ML/MIN (60-); GLUCOSE 139 mg/dL (74-118); MAGNESIUM 2.2 MG/DL (1.3-2.1); POTASSIUM 3.6 mmol/L (3.5-5.1); SODIUM 138 mmol/L (136-145)
--- NOTE | 2018-08-14 07:30 | NUR ---
REC'D PT IN FOWLERS POSITION EATING BREAKFAST, MOTHER AT BEDSIDE, NO S/S OF DISTRESS. BED IN LOWEST POSITION, SIDE RAILS UP X2, AND CALL PONCE WITH IN REACH.
[2018-08-14] MEDS: FAMOTIDINE 20 MG TAB PO SCH ×2 (08:29→16:41)
[2018-08-14] MEDS: ASCORBIC ACID 500 MG TAB PO SCH ×2 (08:29→16:41)
[2018-08-14] MEDS: CYANOCOBALAMIN INJ 1,000 MCG/ML VIAL IM SCH (08:29)
[2018-08-14] MEDS: MESALAMINE 0.375 GM CAPCR PO SCH (08:29)
--- NOTE | 2018-08-14 13:00 | NUR ---
PT IS AWAKE, MOTHER AT BEDSIDE, NO S/S OF DISTRESS. CALL PONCE WITHIN REACH.
[2018-08-14] MEDS: IRON SUCROSE 100 MG in SODIUM CHLORIDE 0.9% 100 ML 100 ML IV SCH (13:16)
[2018-08-14 14:45] LABS: LYMPHOCYTES % (MANUAL) 5 % (19-48); METAMYELOCYTES % (MANUAL) 1 % (0-0); MONOCYTES % (MANUAL) 4 % (3.4-9.0); MYELOCYTES % (MANUAL) 1 % (0-0); NEUTROPHILS % (MANUAL) 89 % (40-74); NUCLEATED RED BLOOD CELLS 1
[2018-08-14 14:46] LABS: ANISOCYTOSIS SLIGHT; HYPOCHROMASIA MODERATE; PLATELET ESTIMATE SLIGHTLY INCREASED; PLATELET MORPHOLOGY COMMENT NORMAL; RBC MORPHOLOGY COMMENT NORMAL
--- NOTE | 2018-08-14 17:45 | NUR ---
PT OUT OF SHOWER. CONNECTED BACK TO IV FLUIDS AND AX. CALL PONCE WITHIN REACH AND NO S/S OF DISTRESS.
[2018-08-15] VITALS (8 sets, daily range): BP systolic 107–133; BP diastolic 59–69
[2018-08-15] MEDS ORDERED: SODIUM CHLORIDE 0.9% 1000ML 1,000 ML IV SCH
[2018-08-15] MEDS: METRONIDAZOLE 500MG/NS 100ML 100 ML IV SCH ×5 (02:17→23:13)
[2018-08-15] MEDS: CIPROFLOXACIN 400 MG/D5W 200ML 200 ML IV SCH ×2 (02:22→12:49)
[2018-08-15 05:40] LABS: BASOPHILS # (AUTO) 0.2 (0.0-0.1); BASOPHILS % 0.4 % (0.0-1.0); EOSINOPHILS % 0.1 % (0.0-6.0); HEMATOCRIT 31.8 % (38.2-49.6); HEMOGLOBIN 9.5 g/dL (14.0-18.0); LYMPHOCYTES # (AUTO) 2.8 (1.0-3.2); LYMPHOCYTES % 8.3 % (18.0-39.1); MEAN CORPUSCULAR HEMOGLOBIN 21.7 pg (28-32); MEAN CORPUSCULAR HGB CONC 29.9 g/dL (31-35); MEAN CORPUSCULAR VOLUME 72.6 fL (81-99); MONOCYTES # (AUTO) 1.3 (0.2-0.8); MONOCYTES % 3.8 % (4.4-11.3); NEUTROPHILS # (AUTO) 26.9 (2.1-6.9); NEUTROPHILS % 80.3 % (38.7-80.0); PLATELET COUNT 561 x10e3/uL (140-360); RED BLOOD COUNT 4.38 x10e6/uL (4.3-5.7); RED CELL DISTRIBUTION WIDTH 21.9 % (11.7-14.4)
[2018-08-15 05:57] LABS: ANION GAP 11.5 mmol/L (8-16); BLOOD UREA NITROGEN 8 mg/dL (7-26); BUN/CREATININE RATIO 11 (6-25); CALCIUM 8.5 mg/dL (8.4-10.2); CARBON DIOXIDE 25 mmol/L (22-29); CHLORIDE 105 mmol/L (98-107); CREATININE, SERUM 0.76 mg/dL (0.72-1.25); EST GLOMERULAR FILTRATION RATE > 60 ML/MIN (60-); GLUCOSE 145 mg/dL (74-118); MAGNESIUM 2.1 MG/DL (1.3-2.1); PHOSPHORUS 3.4 MG/DL (2.3-4.7); POTASSIUM 3.5 mmol/L (3.5-5.1); SODIUM 138 mmol/L (136-145)
[2018-08-15] MEDS: METHYLPREDNISOLONE SOD SUCC 40 MG/ML VIAL 1ML IV SCH ×2 (06:03→16:51)
--- NOTE | 2018-08-15 08:30 | NUR ---
Mylene Hernandez BLOCK CLEANER aware of WBC 33.46.
[2018-08-15] MEDS: MESALAMINE 0.375 GM CAPCR PO SCH (10:03)
[2018-08-15] MEDS: IRON SUCROSE 100 MG in SODIUM CHLORIDE 0.9% 100 ML 100 ML IV SCH (10:03)
[2018-08-15] MEDS: CYANOCOBALAMIN INJ 1,000 MCG/ML VIAL IM SCH (10:03)
[2018-08-15] MEDS: FAMOTIDINE 20 MG TAB PO SCH ×2 (10:03→16:51)
[2018-08-15] MEDS: ASCORBIC ACID 500 MG TAB PO SCH ×2 (10:03→16:51)
--- NOTE | 2018-08-15 12:57 | NUR ---
CASE MANAGEMENT ASSESSMENT Die Cast Die Maker to bedside to discuss plan of care with patient/family. CM/SW role and care transitions discussed. Anticipated discharge plan discussed along with duration of care. CM/SW discussed patients right to make decisions in care. CM/SW work hours given. Patient lives: with his and kid Admit/Transfer: thru ED Hospital/ER visits since last admit: 0; last admitted in June of this year POA/Emergency contact: Damaris Crain [phone] Current/Previous Home Health: none PCP/Follow-up Care: pt states he will follow up with Dr. Vinny Mccall after discharge. CM advised pt to follow up within a week of discharge. Current/Previous DME: none Medications (referring to index hospitalization or the first time you were in the hospital) a. Were changes made in your medications when you were in the hospital on June 29-2018? yes b. Did you understand the changes? yes c. Were you able to obtain your new medications right away? yes d. Were you able to take your medications like the doctor wanted you to? yes e. Did the hospital give you an accurate, easy to understand list of medications when you left? yes Scale of 1-10 how comfortable does patient feel with disease management in outpatient settin Other Services: none Employment Status: employed as patient safety attendant at [employer] Areas of Concerns: ulcerative colitis Referral Needs: none Education Needs: medical management IMM/ROSENTHAL given and signed (if applicable): n/a Goal for discharge: home CM/SW left business card at the bedside with contact information. Name and number was also written on the patients whiteboard. Patient verbalized understanding of discussion. CM will follow-up with ongoing discharge and transition of care needs.
--- NOTE | 2018-08-15 19:00 | NUR ---
Report given to oncoming nurse of patient's status. No s/s of acute distress noted.
[2018-08-15] MEDS ORDERED: SODIUM CHLORIDE 0.9% 250ML 250 ML ONE (23:12)
[2018-08-16] MEDS: CIPROFLOXACIN 400 MG/D5W 200ML 200 ML IV SCH (01:51)
[2018-08-16 04:00] VITALS: BP 122/69
[2018-08-16 05:17] LABS: BASOPHILS # (AUTO) 0.1 (0.0-0.1); BASOPHILS % 0.2 % (0.0-1.0); HEMOGLOBIN 9.1 g/dL (14.0-18.0); LYMPHOCYTES # (AUTO) 3.4 (1.0-3.2); LYMPHOCYTES % 10.4 % (18.0-39.1); MEAN CORPUSCULAR HEMOGLOBIN 21.9 pg (28-32); MEAN CORPUSCULAR HGB CONC 30.3 g/dL (31-35); MEAN CORPUSCULAR VOLUME 72.3 fL (81-99); MONOCYTES # (AUTO) 2.9 (0.2-0.8); MONOCYTES % 8.9 % (4.4-11.3); NEUTROPHILS # (AUTO) 24.6 (2.1-6.9); NEUTROPHILS % 76.2 % (38.7-80.0); PLATELET COUNT 587 x10e3/uL (140-360); RED BLOOD COUNT 4.15 x10e6/uL (4.3-5.7); RED CELL DISTRIBUTION WIDTH 22.5 % (11.7-14.4)
[2018-08-16 05:36] LABS: ANION GAP 9.3 mmol/L (8-16); BLOOD UREA NITROGEN 9 mg/dL (7-26); BUN/CREATININE RATIO 13 (6-25); CALCIUM 8.6 mg/dL (8.4-10.2); CARBON DIOXIDE 27 mmol/L (22-29); CHLORIDE 105 mmol/L (98-107); CREATININE, SERUM 0.72 mg/dL (0.72-1.25); EST GLOMERULAR FILTRATION RATE > 60 ML/MIN (60-); GLUCOSE 158 mg/dL (74-118); MAGNESIUM 2.2 MG/DL (1.3-2.1); POTASSIUM 3.3 mmol/L (3.5-5.1); SODIUM 138 mmol/L (136-145)
[2018-08-16] MEDS: METHYLPREDNISOLONE SOD SUCC 40 MG/ML VIAL 1ML IV SCH (05:42)
[2018-08-16] MEDS: METRONIDAZOLE 500MG/NS 100ML 100 ML IV SCH (05:42)
[2018-08-16 07:52] VITALS: BP 130/71
[2018-08-16 07:58] LABS: RBC MORPHOLOGY COMMENT ABNORMAL
[2018-08-16 07:59] LABS: ANISOCYTOSIS SLIGHT; HYPOCHROMASIA MODERATE; PLATELET ESTIMATE SLIGHTLY INCREASED; PLATELET MORPHOLOGY COMMENT NORMAL
[2018-08-16] MEDS ORDERED: SODIUM CHLORIDE 0.9% 250ML 250 ML ONE (08:20)
[2018-08-16] MEDS: MESALAMINE 0.375 GM CAPCR PO SCH (08:27)
[2018-08-16] MEDS: ASCORBIC ACID 500 MG TAB PO SCH (08:27)
[2018-08-16] MEDS: FAMOTIDINE 20 MG TAB PO SCH (08:27)
[2018-08-16] MEDS: CYANOCOBALAMIN INJ 1,000 MCG/ML VIAL IM SCH (08:27)
[2018-08-16 08:30] VITALS: BP 130/71
[2018-08-16] MEDS ORDERED: POTASSIUM CHLORIDE 20 MEQ TAB CR PO STA (09:36)
[2018-08-16] MEDS ORDERED: APRISO0.375 GM PO (09:44)
[2018-08-16] MEDS ORDERED: ASCORBIC ACID500 MG PO (09:44)
[2018-08-16] MEDS ORDERED: FERROUS SULFAT325 MG PO (09:44)
[2018-08-16] MEDS ORDERED: CIPRO500 MG PO (09:44)
[2018-08-16] MEDS ORDERED: METRONIDAZOLE500 MG PO (09:44)
[2018-08-16] MEDS ORDERED: PREDNISONE PO (09:44)
[2018-08-16] MEDS ORDERED: TYLENOL WITH C1 EACH PO (09:44)
--- NOTE | 2018-08-16 10:36 | NUR ---
Right AC IV discontinued. No signs of infiltration noted. 2x2 gauze and tape placed. Taken via wheelchair by PCT. AAOX4 to time, person, place, situation. Respirations even and unlabored. Denies pain. Discharge instructions, rx, and all personal belongings taken with patient.
--- NOTE | 2018-08-17 04:23 | Discharge Summary ---
ADMISSION DIAGNOSES: Ulcerative colitis flare, failed outpatient treatment; acute blood loss anemia due to ulcerative colitis flare; thrombocytosis; hypomagnesemia. DISCHARGE DIAGNOSES: Ulcerative colitis flare, failed outpatient treatment; acute blood loss anemia due to ulcerative colitis flare; thrombocytosis; hypomagnesemia; hypokalemia. MEDICAL HISTORY: Colitis. SURGICAL HISTORY: None. FAMILY HISTORY: The patient's grandma, grandpa, and paternal grandma have diabetes. The patient's paternal grandma, paternal grandpa, and maternal uncles have cancer. SOCIAL HISTORY: Noncontributory. HOSPITAL COURSE: A 22-year-old male, discharged from hospital back in June with one week of p.o. antibiotics for colitis. He felt better while taking antibiotics, but once the antibiotics stopped, the abdominal pain and rectal bleeding began. It continues to worsen. The pain is primarily epigastric with some bilateral lower quadrant sharp intermittent pain. Pain is worse with hiccups and with deep breath. Pain is only improved with IV medicine on admission to the ER. In the ER, patient had a CT of the abdomen that showed improved, but not resolved colitis with persistent inflammatory changes in the descending colon. Blood cultures negative. Urine culture negative. Clostridium difficile negative. Stool culture sent, but pending at time of discharge. GI was consulted, who began to work the patient up for biologics. He ordered a TB test, which was not back at time of discharge. The patient was started on Cipro, Flagyl, IV steroids, and Apriso on admission to the ER. After a couple of days, he was feeling much better and ready to discharge home. He will discharge home with tapering prednisone, Cipro and Flagyl for 10 more days, Apriso, iron, vitamin C, and Tylenol No.3 p.r.n. The patient understands discharge instructions and agrees to plan. Vital signs stable, patient afebrile. He will follow up with primary care in 1-[address] Mccall within the week. Dictated by Mylene Hernandez NP MD ARIELLE Ramirez/MODL /[id number]
== END 2018-08-16 10:36 | disposition home or self-care (01) | DRG 872 ==
LOC: ER 12:20 → ERHOLD 16:36 → MED/SURG2 18:13 → OBSVTOIN 08-13 16:55
PROVIDERS: ADMIT Internal Medicine; ATTEND Internal Medicine
DX: A41.9 Sepsis, unspecified organism (principal); N39.0 Urinary tract infection, site not specified; D62 Acute posthemorrhagic anemia; K51.90 Ulcerative colitis, unspecified, without complications; D47.3 Essential (hemorrhagic) thrombocythemia; E87.6 Hypokalemia; R35.0 Frequency of micturition; E83.41 Hypermagnesemia
CPT/HCPCS: 36415; 74177; 80048; 80053; 81001; 82550; 82553; 82607; 82728; 82746; 83540; 83605; 83690; 83735; 83880; 84100; 84466; 84484; 85025; 85045; 86850; 86900; 87040; 87045; 87086; 87493; 96374; 96375; 99284; G0378; J1756; J2270; J2405; J2920; J3420; J7030; J7050; Q9967